=== PATIENT | female | born 1985 | race Hispanic/Latino ===

== ENCOUNTER 2017-03-20 10:06 | Day surgery (SDC) | payer OTHER ==
[2017-03-20] MEDS ORDERED: HEPARIN SUB-Q NR (11:00)
[2017-03-20] MEDS ORDERED: LEVAQUIN 750MG/150ML 750 MG/150 ML BAG IV ONE (11:00)
[2017-03-20] MEDS ORDERED: NACL 0.9% 1000 ML 1,000 ML ONE (12:23)
[2017-03-20] MEDS ORDERED: XYLOCAINE MPF 2% ONE (12:29)
[2017-03-20] MEDS ORDERED: SUBLIMAZE ONE (12:29)
[2017-03-20] MEDS ORDERED: DIPRIVAN 10 MG/ML IV ONE (12:29)
[2017-03-20] MEDS ORDERED: ZEMURON IV ONE (12:30)
--- NOTE | 2017-03-20 12:31 | Anesthesia Consultation ---
Anesthesia Consult and Med Hx Date of service: 03/20/17 - Airway Anesthetic Teeth Evaluation: Good ROM Head & Neck: Adequate Mental/Hyoid Distance: Adequate Mallampati Class: Class II Intubation Access Assessment: Probably Good - Pulmonary Exam CTA: Yes - Cardiac Exam Cardiac Exam: RRR - Pre-Operative Health Status ASA Pre-Surgery Classification: ASA3 Proposed Anesthetic Plan: General - Cardiovascular System Hx Hypertension: Yes - Other Systems Hx Obesity: Yes (morbid) - Additional Comments Anesthesia Medical History Comments: HELLP when
--- NOTE | 2017-03-20 12:32 | Anesthesia Day of Surgery ---
Anesthesia Day of Surgery - Day of Surgery Patient Examined: Yes Patient H&P Reviewed: Yes Patient is NPO: Yes
[2017-03-20] MEDS ORDERED: VERSED IV NR (13:00)
[2017-03-20] MEDS ORDERED: NACL 0.9% 1000 ML 1,000 ML IV SCH (13:00)
[2017-03-20] MEDS ORDERED: PEPCID PO NR (13:00)
[2017-03-20] MEDS ORDERED: MARCAINE 0.5% INFILTRATI ONE ×2 (13:13)
[2017-03-20] MEDS ORDERED: ZOFRAN ONE (13:14)
[2017-03-20] MEDS ORDERED: BENADRYL ONE (13:14)
[2017-03-20] MEDS ORDERED: DECADRON ONE (13:14)
[2017-03-20] MEDS ORDERED: MARCAINE 0.5% 30 ML INFILTRATI ONE (13:21)
[2017-03-20] MEDS ORDERED: TORADOL ONE (13:28)
[2017-03-20] MEDS ORDERED: NEOSTIGMINE ONE (13:55)
[2017-03-20] MEDS ORDERED: ROBINUL ONE (13:55)
--- NOTE | 2017-03-20 14:30 | Post Operative Note ---
Pre-op diagnosis: Chronic cholecystitis Post-op diagnosis: same Findings: Multiple large gallstones Procedure: Lap cholecystectomy Anesthesia: GETA Surgeon: CHRIS GALINDO Estimated blood loss: minimal Pathology: list (gallbladder and gallstones) Specimen disposition: to lab Condition: stable Disposition: PACU
[2017-03-20] MEDS: DILAUDID IV PRN ×2 (15:02→15:15)
[2017-03-20] MEDS ORDERED: PERCOCET 5/325 PO PRN (15:33)
[2017-03-20] MEDS ORDERED: ZOFRAN IV ONE (17:15)
[2017-03-20] MEDS ORDERED: TRANSDERM-SCOP TD ONE (18:00)
[2017-03-20] MEDS ORDERED: PERCOCET 5/325 PO ONE (18:00)
[2017-03-20 18:01] VITALS: BP 119/72
--- NOTE | 2017-03-25 14:26 | Operative Report ---
Operative Report Operative Report: Date of operation: 03/20/2017 Preoperative diagnosis: Chronic cholecystitis Postoperative diagnosis: Same Operation: Laparoscopic cholecystectomy Surgeon: Jeovanny Juarez M.D. Findings: Multiple large gallstones Anesthesia: GETA EBL: Minimal No complications, drains or cultures. Specimens consisted of the gallbladder and multiple large gallstones. Description of procedure: Patient was placed supine on the operating room table. GETA was administered. Abdomen was prepped and draped. Proposed trocar sites were infiltrated with 8 mL of 0.5% Marcaine with epinephrine. A small infraumbilical incision was made, linea alba incised and the peritoneal cavity carefully entered. A blunt Surgiport was then inserted into the peritoneal cavity and pneumoperitoneum established. A 10 mm subxiphoid, 5 mm right upper quadrant and 5 mm right lateral abdominal Surgiports were then inserted into the peritoneal cavity under direct vision without incident. Patient was placed in a reversed Trendelenburg position with the right side rotated upwards. The fundus of the gallbladder was grasped and retracted cephalad and laterally. Cystic duct and artery were identified and skeletonized and the critical view of safety obtained. The cystic duct was milked toward the gallbladder and the cystic duct doubly clipped and divided. Cystic artery was doubly clipped and divided. The gallbladder was then dissected off of its hepatic fossa using electrocautery. Gallbladder was then placed in an Endobag and the gallbladder and stones removed via the infraumbilical fascial defect. The infraumbilical blunt Surgiport was replaced and pneumoperitoneum reestablished. Irrigation fluid used during the procedure was aspirated from Morison's pouch and the infrahepatic space. Upper abdominal ports were removed and there was no bleeding from the port sites under low pressure. The infraumbilical port was removed. The infraumbilical fascial defect was closed with 2 interrupted sutures of 0 Vicryl. Skin was approximated with running subcuticular sutures of 4-0 Monocryl. Sterile absorbent dressings were applied. Patient tolerated the procedure well. She was extubated in the operating room and was taken to the PACU in stable condition.
== END 2017-03-20 16:15 | disposition home or self-care (01) ==
LOC: OR 10:06
PROVIDERS: ATTEND Surgery
DX: K80.10 Calculus of gallbladder with chronic cholecystitis without obstruction (principal); I10 Essential (primary) hypertension; E66.01 Morbid (severe) obesity due to excess calories; Z68.41 Body mass index [BMI] 40.0-44.9, adult; Z88.0 Allergy status to penicillin; Z79.899 Other long term (current) drug therapy
CPT/HCPCS: 36415; 47562; 81025; 84132; 88304; J1100; J1170; J1200; J1644; J1885; J1956; J2250; J2405; J2704; J2710; J3010; J7030